=== PATIENT | female | born 1965 | race African-American/Black ===

== ENCOUNTER 2021-01-09 17:30 | Emergency (ER) | payer OTHER ==
[2021-01-09 18:27] VITALS: TEMP 100.2; BMI 31.4
[2021-01-09] MEDS ORDERED: SODIUM CHLORIDE 0.9% 500 ML INFUS.BAG IV ONE (20:46)
[2021-01-09] MEDS ORDERED: ACETAMINOPHEN 1000 MG/100 ML VIAL IVPB ONE (20:46)
[2021-01-09] MEDS ORDERED: AMOX TR/POT CLAV 875MG/125MG TABLETS (FP) PO ONE (20:54)
[2021-01-09] MEDS ORDERED: ACETAMINOPHEN INJECTION 100 ML IVPB ONE (20:54)
[2021-01-09] MEDS ORDERED: AMOX TR/POT CLAV 875MG/125MG TABLETS (FP) ONE (20:55)
[2021-01-09 21:10] LABS: BASO % 0.5 % (0-2.0); EOS % 0.5 % (0-4.5); HEMATOCRIT 40.9 % (32.4-45.2); HEMOGLOBIN 13.6 GM/dL (10.7-15.3); LYMPH % 6.6 % (8-40); MCH 28.3 pg (25.7-33.7); MCHC 33.1 g/dl (32.0-36.0); MEAN CELL VOLUME 85.4 fl (80-96); MEAN PLT VOLUME 7.8 fl (7.5-11.1); MONO % 4.1 % (3.8-10.2); NEUT % 88.3 % (42.8-82.8); PLATELET COUNT 277 10^3/uL (134-434); RBC 4.79 M/mm3 (3.60-5.2); RDW 14.4 % (11.6-15.6); WHITE BLOOD COUNT 12.6 K/mm3 (4.0-10.0)
[2021-01-09 21:46] LABS: ALBUMIN 3.5 g/dl (3.4-5.0); BLOOD UREA NITROGEN 12.5 mg/dL (7-18); MAGNESIUM 2.2 mg/dL (1.8-2.4)
[2021-01-09 21:50] LABS: BILIRUBIN,TOTAL 0.4 mg/dL (0.2-1)
[2021-01-09 21:51] LABS: TOT PROT 8.3 g/dl (6.4-8.2)
[2021-01-09 22:20] VITALS: BP 144/94; PULSE 120
== END 2021-01-09 22:24 | disposition home or self-care (01) ==
LOC: JER 17:30
PROC: 3E0333Z Introduction of Anti-inflammatory into Peripheral Vein, Percutaneous Approach (ICD-10-PCS; principal; 2021-01-09)
DX: J02.0 Streptococcal pharyngitis (principal)
CPT/HCPCS: 36415; 80053; 83735; 85025; 87651; 87804; 96374; 99284-25; C9803; J0131; U0003; U0005